=== PATIENT | female | born 1970 | race Two or more races ===

== ENCOUNTER 2017-06-12 23:29 | Emergency (ER) | payer SELFPAY ==
[~2017-06-12] VITALS: Ht 160 cm; Wt 73.9 kg
[~2017-06-12 23:29] MED LIST: ATOR10TA PO; CHOL2000 PO; HYDR-3240; LORA10TA62 PO; VALS80TA3 PO
[2017-06-12 23:31] VITALS: BP 121/78
[2017-06-12] MEDS ORDERED: HYDROcodone/APAP 5/325 TABLET ONE (23:50)
[2017-06-12] MEDS ORDERED: HYDROcodone/APAP 5/325 TABLET PO STA (23:56)
== END 2017-06-13 01:54 | disposition home or self-care (01) ==
LOC: ED 23:59
DX: S63.642A Sprain of metacarpophalangeal joint of left thumb, initial encounter (principal); S63.622A Sprain of interphalangeal joint of left thumb, initial encounter; I10 Essential (primary) hypertension; E78.00 Pure hypercholesterolemia, unspecified; W00.0XXA Fall on same level due to ice and snow, initial encounter; Y93.01 Activity, walking, marching and hiking; Y99.8 Other external cause status; Y92.89 Other specified places as the place of occurrence of the external cause
CPT/HCPCS: 99284

== ENCOUNTER 2017-11-29 00:06 | Emergency (ER) | payer SELFPAY ==
[~2017-11-29] VITALS: Ht 162.6 cm; Wt 70.0 kg
[2017-11-29 00:09] VITALS: BP 117/67
[2017-11-29] MEDS ORDERED: HYDROcodone/APAP 5/325 TABLET ONE (00:45)
[2017-11-29] MEDS ORDERED: HYDROcodone/APAP 5/325 TABLET PO ONE (01:00)
== END 2017-11-29 00:55 | disposition home or self-care (01) ==
LOC: ED 00:42
DX: K11.5 Sialolithiasis (principal); K11.21 Acute sialoadenitis; I10 Essential (primary) hypertension; E78.00 Pure hypercholesterolemia, unspecified
CPT/HCPCS: 99282

== ENCOUNTER 2019-11-24 00:46 | Emergency (ER) | payer SELFPAY ==
[~2019-11-24] VITALS: Ht 154.9 cm; Wt 65.5 kg
[2019-11-24 01:20] LABS: MICROSCOPIC NOT IND
[2019-11-24] MEDS ORDERED: ONDANSETRON 2MG/ML, 2ML ONE (01:25)
[2019-11-24] MEDS ORDERED: MORPHINE SULFATE 4 MG/ML, 1ML ONE ×2 (01:26→04:29)
[2019-11-24] MEDS ORDERED: ONDANSETRON 2MG/ML, 2ML IVPush ONE (01:30)
[2019-11-24] MEDS ORDERED: MORPHINE SULFATE 4 MG/ML, 1ML IVPush ONE ×2 (01:30→04:30)
[2019-11-24 01:38] LABS: BASOPHILS # (AUTO) 0.03 x10^3/uL (0-0.1); BASOPHILS % (AUTO) 0 % (0-1); EOSINOPHILS % (AUTO) 2 % (1-7); LYMPHOCYTES # (AUTO) 2.72 x10^3/uL (1-3.4); LYMPHOCYTES % (AUTO) 34 % (22-44); MD NO; MEAN CORPUSCULAR HEMOGLOBIN 29.6 pg (27.0-34.8); MEAN CORPUSCULAR HGB CONC 32.9 g/dL (32.4-35.8); MEAN CORPUSCULAR VOLUME 89.9 fL (80-100); MEAN PLATELET VOLUME 7.6 fL (7.4-10.4); MONOCYTES # (AUTO) 0.95 x10^3/uL (0.2-0.8); MONOCYTES % (AUTO) 12 % (2-9); NEUTROPHILS # (AUTO) 4.22 x10^3/uL (1.8-6.8); NEUTROPHILS % (AUTO) 52 % (42-75); PLATELET COUNT 263 x10^3/uL (130-400); RED BLOOD COUNT 3.73 x10^6/uL (3.82-5.3); RED CELL DISTRIBUTION WIDTH 13.5 % (9.6-15.2)
[2019-11-24 01:51] LABS: ANION GAP 4 mmol/L (5-15); CALCIUM 8.7 mg/dL (8.5-10.1); CHLORIDE 109 mmol/L (98-107); CREATININE 0.79 mg/dL (0.55-1.02)
[2019-11-24] MEDS ORDERED: KETOROLAC 30 MG/1 ML ONE (03:27)
[2019-11-24] MEDS ORDERED: KETOROLAC 30 MG/1 ML IVPush ONE (03:30)
--- NOTE | 2019-11-24 03:30 | NUR ---
PT MEDICATED PER MAR, UPDATED ON POC.
[2019-11-24 04:35] VITALS: BP 101/62
== END 2019-11-24 04:45 | disposition home or self-care (01) ==
LOC: ED 02:12
DX: N20.1 Calculus of ureter (principal); R30.0 Dysuria; M79.645 Pain in left finger(s); E78.00 Pure hypercholesterolemia, unspecified; I10 Essential (primary) hypertension; Z90.89 Acquired absence of other organs
CPT/HCPCS: 36415; 73130; 74176; 80048; 81003; 84703; 85025; 96374; 96375; 96376; 99285; J1885; J2270; J2405

== ENCOUNTER 2019-12-16 01:32 | Emergency (ER) | payer MEDICAID, OTHER ==
[~2019-12-16] VITALS: Ht 167.6 cm; Wt 67.0 kg
[2019-12-16 01:34] VITALS: BP 124/71
--- NOTE | 2019-12-16 01:44 | NUR ---
PT AMBULATORY TO ROOM.
[2019-12-16] MEDS ORDERED: HYDROcodone/APAP 5/325 TABLET ONE (01:58)
[2019-12-16] MEDS ORDERED: HYDROcodone/APAP 5/325 TABLET PO ONE (02:00)
--- NOTE | 2019-12-16 02:05 | NUR ---
THIS PT HAS A RX OF NORCO THAT SHE FINISHED TODAY FROM PRIOR VISIT FOR PAIN RELATED TO KIDNEY STONE. THIS RN TO BEDSIDE WITH ORDERED MED, PT REFUSING AT THIS TIME, WANTS IV MORPHINE INSTEAD. MED HELD UNTIL MD CAN BE ASKED FOR ORDER.
--- NOTE | 2019-12-16 02:10 | NUR ---
NO NEW ORDERS. PT EDUCATED ON MEDICATION ORDERS. PT STATES "WHATEVER," CONFIRMED WITH PT THAT SHE WANTED TO BE MEDICATED, PT MEDICATED TO MAR.
[2019-12-16 02:14] LABS: MICROSCOPIC NOT IND
--- NOTE | 2019-12-16 02:57 | NUR ---
PT HAD BEEN GIVEN WARM WASHCLOTH TO PLACE ON GLAND AT SAME TIME SHE WAS MEDICATED. UPON D/C, PT GIVEN INSTRUCTIONS AND EXTENSIVE EDUCATION ABOUT HOW TO TREAT [place]EN SALAVARY GLAND INCLUDING WARM COMPRESSES AND SOUR CANDY. PT STATES "THE PAIN MED HELPED ME A LITTLE BUT NOT A LOT, THEY DON'T UNDERSTAND HOW BAD THE PAIN IS. IT'S FINE I'M LEAVING AND I'M GOING SOMEWHERE ELSE FOR HELP BECAUSE THEY WERE SO MEAN TO ME HERE."
== END 2019-12-16 02:57 | disposition home or self-care (01) ==
LOC: ED 02:40
DX: K11.22 Acute recurrent sialoadenitis (principal); R10.31 Right lower quadrant pain; R30.0 Dysuria; N20.1 Calculus of ureter; I10 Essential (primary) hypertension; E78.00 Pure hypercholesterolemia, unspecified; Z90.89 Acquired absence of other organs
CPT/HCPCS: 81003; 99283

== ENCOUNTER 2020-08-07 08:50 | Emergency (ER) | payer SELFPAY ==
[~2020-08-07] VITALS: Ht 165.1 cm; Wt 65.0 kg
[~2020-08-07 08:50] MED LIST changes: +HYDR-2214; -HYDR-3240; +LORA-59 PO; -LORA10TA62 PO
--- NOTE | 2020-08-07 09:01 | NUR ---
PT AMBULATES WELL TO ED ROOM. PT TO BATHROOM FOR UA SPECIMEN. RN EDUCATED PT ON CLEAN CATCH PROCESS.
[2020-08-07] MEDS ORDERED: ONDANSETRON ODT 4 MG ONE (09:15)
[2020-08-07] MEDS ORDERED: OXYcodone/APAP 5/325MG TABLET ONE ×2 (09:15→12:31)
[2020-08-07 09:26] LABS: MICROSCOPIC AUTO
[2020-08-07] MEDS ORDERED: ONDANSETRON ODT 4 MG PO ONE (09:30)
[2020-08-07] MEDS ORDERED: OXYcodone/APAP 5/325MG TABLET PO ONE ×2 (09:30→12:30)
[2020-08-07 09:32] LABS: BASOPHILS % (AUTO) 1 % (0-1); EOSINOPHILS % (AUTO) 3 % (1-7); LYMPHOCYTES % (AUTO) 35 % (22-44); MEAN CORPUSCULAR HEMOGLOBIN 29.9 pg (27.0-34.8); MEAN CORPUSCULAR HGB CONC 33.7 g/dL (32.4-35.8); MEAN PLATELET VOLUME 7.1 fL (7.4-10.4); MONOCYTES % (AUTO) 9 % (2-9); NEUTROPHILS % (AUTO) 54 % (42-75); PLATELET COUNT 332 x10^3/uL (130-400); RED BLOOD COUNT 3.75 x10^6/uL (3.82-5.3); RED CELL DISTRIBUTION WIDTH 13.6 % (9.6-15.2)
[2020-08-07 09:46] LABS: ALANINE AMINOTRANSFERASE 76 U/L (12-78); ALBUMIN 3.4 g/dL (3.4-5.0); ANION GAP 4 mmol/L (5-15); CALCIUM 8.8 mg/dL (8.5-10.1); CHLORIDE 107 mmol/L (98-107); CREATININE 0.79 mg/dL (0.55-1.02)
[2020-08-07 09:47] LABS: MD NO
[2020-08-07 09:48] LABS: ALKALINE PHOSPHATASE 137 U/L (45-117); BILIRUBIN,TOTAL 0.2 mg/dL (0.2-1.0); TOTAL PROTEIN 9.8 g/dL (6.4-8.2)
--- NOTE | 2020-08-07 10:02 | NUR ---
pt reports decrease in abdominal pain. nad noted at this time.
--- NOTE | 2020-08-07 10:27 | NUR ---
PT CURRENTLY IN US
[2020-08-07] MEDS ORDERED: CEFTRIAXONE 1,000 MG ONE (10:41)
[2020-08-07] MEDS ORDERED: CEFTRIAXONE 1,000 MG IM ONE (11:00)
--- NOTE | 2020-08-07 11:03 | NUR ---
PT MEDICATED PER EMAR. PT DID NOT TOLERATE IM MEDICATION WELL. SIDE RAILS UP, CALL LIGHT IN REACH. HOB TO LEVEL OF COMFORT. READY FOR SECOND US.
--- NOTE | 2020-08-07 12:10 | NUR ---
PT ASLEEP UPON ENTRY TO ROOM.
[2020-08-07 12:25] VITALS: BP 109/57
[2020-08-07] MEDS ORDERED: IBUPROFEN 200 MG TABLET PO ONE (12:30)
[2020-08-07] MEDS ORDERED: IBUPROFEN 200 MG TABLET ONE (12:31)
== END 2020-08-07 12:52 | disposition home or self-care (01) ==
LOC: ED 11:05
DX: N30.01 Acute cystitis with hematuria (principal); R10.30 Lower abdominal pain, unspecified; R11.0 Nausea; I10 Essential (primary) hypertension; E78.00 Pure hypercholesterolemia, unspecified
CPT/HCPCS: 36415; 74018; 76770; 76830; 80053; 81001; 85025; 87086; 96372; 99285; J0696; Q0162

== ENCOUNTER 2020-09-02 08:58 | Emergency (ER) | payer SELFPAY ==
[~2020-09-02] VITALS: Ht 167.6 cm; Wt 64.7 kg
[2020-09-02] MEDS ORDERED: KETOROLAC 30 MG/1 ML ONE (09:26)
[2020-09-02] MEDS ORDERED: ONDANSETRON 2MG/ML, 2ML ONE (09:26)
[2020-09-02] MEDS ORDERED: MORPHINE SULFATE 4 MG/ML, 1ML ONE ×2 (09:26→10:34)
[2020-09-02] MEDS ORDERED: PROMETHAZINE 25 MG/ML, 1ML IM ONE (09:30)
[2020-09-02] MEDS ORDERED: ONDANSETRON 2MG/ML, 2ML IVPush ONE (09:30)
[2020-09-02] MEDS ORDERED: SODIUM CHLORIDE 0.9% 1,000ML IVBOLUS ONE (09:30)
[2020-09-02] MEDS: KETOROLAC 30 MG/1 ML IVPush ONE ×2 (09:30→09:34)
[2020-09-02] MEDS: MORPHINE SULFATE 4 MG/ML, 1ML IVPush PRN ×2 (09:35→10:36)
--- NOTE | 2020-09-02 09:43 | NUR ---
Pt to imaging.
--- NOTE | 2020-09-02 10:00 | NUR ---
Pt states pain has been increasing for the past week. Pt reports initial pain for a week 3 weeks ago, resolved and now back. Pt c/o nausea, no emisis while in ER. Connected to BP and O2 monitors. Denies need for more pain or nausea meds at this time.
[2020-09-02 10:23] LABS: MICROSCOPIC NOT IND
[2020-09-02 10:37] LABS: BASOPHILS % (AUTO) 0 % (0-1); EOSINOPHILS % (AUTO) 3 % (1-7); LYMPHOCYTES % (AUTO) 38 % (22-44); MEAN CORPUSCULAR HEMOGLOBIN 29.6 pg (27.0-34.8); MEAN CORPUSCULAR HGB CONC 33.5 g/dL (32.4-35.8); MEAN PLATELET VOLUME 7.9 fL (7.4-10.4); MONOCYTES % (AUTO) 11 % (2-9); NEUTROPHILS % (AUTO) 48 % (42-75); PLATELET COUNT 307 x10^3/uL (130-400); RED BLOOD COUNT 3.77 x10^6/uL (3.82-5.3); RED CELL DISTRIBUTION WIDTH 13.6 % (9.6-15.2)
[2020-09-02 10:49] LABS: ALBUMIN 3.5 g/dL (3.4-5.0); ANION GAP 8 mmol/L (5-15); CHLORIDE 110 mmol/L (98-107)
[2020-09-02 10:54] LABS: ALANINE AMINOTRANSFERASE 128 U/L (12-78); ALKALINE PHOSPHATASE 146 U/L (45-117); BILIRUBIN,TOTAL 0.2 mg/dL (0.2-1.0); CREATININE 0.76 mg/dL (0.55-1.02)
--- NOTE | 2020-09-02 11:07 | NUR ---
US at bedside.
[2020-09-02 11:41] VITALS: BP 98/65
--- NOTE | 2020-09-02 11:41 | NUR ---
MD Pepe back to bedside to update pt on POC.
[2020-09-02] MEDS ORDERED: HYDROcodone/APAP 5/325 TABLET ONE (11:50)
[2020-09-02] MEDS ORDERED: HYDROcodone/APAP 5/325 TABLET PO ONE (12:00)
== END 2020-09-02 12:07 | disposition home or self-care (01) ==
LOC: ED 11:54
DX: R10.11 Right upper quadrant pain (principal); R10.13 Epigastric pain; R11.2 Nausea with vomiting, unspecified; I10 Essential (primary) hypertension; E78.00 Pure hypercholesterolemia, unspecified
CPT/HCPCS: 36415; 74176; 76700; 80053; 81003; 83690; 85025; 96361; 96374; 96375; 96376; 99285; J2270; J2405; J7030

== ENCOUNTER 2020-10-09 20:11 | Emergency (ER) | payer SELFPAY ==
[~2020-10-09] VITALS: Ht 165.1 cm; Wt 64.6 kg
[2020-10-09] MEDS ORDERED: KETOROLAC 15 MG/1ML IVPush ONE (22:00)
[2020-10-09] MEDS ORDERED: ONDANSETRON 2MG/ML, 2ML IVPush ONE (22:00)
[2020-10-09] MEDS ORDERED: SODIUM CHLORIDE 0.9% 1,000ML IVBOLUS ONE (22:00)
[2020-10-09] MEDS ORDERED: ONDANSETRON 2MG/ML, 2ML ONE (22:18)
[2020-10-09] MEDS ORDERED: ACETAMINOPHEN 500 MG TABLET ONE (22:18)
[2020-10-09 22:21] LABS: BASOPHILS % (AUTO) 0 % (0-1); EOSINOPHILS % (AUTO) 0 % (1-7); LYMPHOCYTES % (AUTO) 13 % (22-44); MEAN CORPUSCULAR HEMOGLOBIN 29.9 pg (27.0-34.8); MEAN CORPUSCULAR HGB CONC 33.9 g/dL (32.4-35.8); MEAN PLATELET VOLUME 7.5 fL (7.4-10.4); MONOCYTES % (AUTO) 8 % (2-9); NEUTROPHILS % (AUTO) 79 % (42-75); PLATELET COUNT 230 x10^3/uL (130-400); RED BLOOD COUNT 3.87 x10^6/uL (3.82-5.3); RED CELL DISTRIBUTION WIDTH 14.3 % (9.6-15.2)
[2020-10-09] MEDS ORDERED: ACETAMINOPHEN 500 MG TABLET PO ONE (22:30)
[2020-10-09 22:33] LABS: ALANINE AMINOTRANSFERASE 108 U/L (12-78); ALBUMIN 3.3 g/dL (3.4-5.0); ANION GAP 5 mmol/L (5-15); CALCIUM 9.2 mg/dL (8.5-10.1); CHLORIDE 107 mmol/L (98-107); CREATININE 0.65 mg/dL (0.55-1.02)
[2020-10-09 22:37] LABS: ALKALINE PHOSPHATASE 134 U/L (45-117); BILIRUBIN,TOTAL 0.8 mg/dL (0.2-1.0); TOTAL PROTEIN 10.2 g/dL (6.4-8.2); TROPONIN I 0.023 ng/mL (0.000-0.045)
[2020-10-09 22:51] LABS: MICROSCOPIC NOT IND
[2020-10-09 23:26] LABS: AMPHETAMINE SCREEN, URINE Positive (Negative); BARBITURATE SCREEN, URINE Negative (Negative); BENZODIAZEPINE SCREEN, URINE Positive (Negative); CANNABINOID SCREEN, URINE Negative (Negative); COCAINE SCREEN, URINE Negative (Negative); METHADONE SCREEN, URINE Negative (Negative); OPIATE SCREEN, URINE Positive (Negative)
[2020-10-09] MEDS ORDERED: MORPHINE SULFATE 4 MG/ML, 1ML ONE (23:27)
[2020-10-09] MEDS ORDERED: CEFTRIAXONE 1,000 MG in DEXTROSE 5% 50 ML IVPB ONE (23:30)
[2020-10-09] MEDS ORDERED: MORPHINE SULFATE 4 MG/ML, 1ML IVPush ONE (23:30)
[2020-10-09 23:58] VITALS: BP 109/52
== END 2020-10-10 00:03 | disposition home or self-care (01) ==
LOC: ED 21:00
DX: J18.9 Pneumonia, unspecified organism (principal); Z20.822 Contact with and (suspected) exposure to COVID-19; R50.9 Fever, unspecified; F11.10 Opioid abuse, uncomplicated; F15.129 Other stimulant abuse with intoxication, unspecified; Z72.9 Problem related to lifestyle, unspecified; R42 Dizziness and giddiness; R00.0 Tachycardia, unspecified; I10 Essential (primary) hypertension; E78.00 Pure hypercholesterolemia, unspecified
CPT/HCPCS: 36415; 71045; 80053; 80307; 81003; 83605; 83690; 84145; 84484; 85025; 87040; 93005; 96361; 96365; 96375; 99285; J0696; J2270; J2405; J7030; U0003; U0005

== ENCOUNTER 2020-10-10 23:28 | Inpatient (IN) | payer OTHER ==
[~2020-10-10] VITALS: Ht 167.6 cm; Wt 70.6 kg
[2020-10-11] MEDS ORDERED: IBUPROFEN 600 MG TABLET PO ONE
[2020-10-11] MEDS ORDERED: SODIUM CHLORIDE 0.9% 1,000ML IVBOLUS ONE
[2020-10-11] MEDS ORDERED: IBUPROFEN 600 MG TABLET ONE (00:27)
[2020-10-11 00:41] LABS: BASOPHILS % (AUTO) 0 % (0-1); EOSINOPHILS % (AUTO) 1 % (1-7); LYMPHOCYTES % (AUTO) 22 % (22-44); MEAN CORPUSCULAR HEMOGLOBIN 29.9 pg (27.0-34.8); MEAN CORPUSCULAR HGB CONC 33.5 g/dL (32.4-35.8); MONOCYTES % (AUTO) 8 % (2-9); NEUTROPHILS % (AUTO) 69 % (42-75); PLATELET COUNT 201 x10^3/uL (130-400); RED BLOOD COUNT 3.58 x10^6/uL (3.82-5.3); RED CELL DISTRIBUTION WIDTH 14.2 % (9.6-15.2)
--- NOTE | 2020-10-11 00:44 | NUR ---
URINE SENT TO LAB AT THIS TIME
--- NOTE | 2020-10-11 00:48 | NUR ---
Pt asking for Morphine. MD aware.
[2020-10-11 00:58] LABS: ALANINE AMINOTRANSFERASE 71 U/L (12-78); ALBUMIN 2.5 g/dL (3.4-5.0); ANION GAP 7 mmol/L (5-15); CALCIUM 8.1 mg/dL (8.5-10.1); CHLORIDE 111 mmol/L (98-107)
[2020-10-11 01:00] LABS: ALKALINE PHOSPHATASE 127 U/L (45-117); BILIRUBIN,TOTAL 0.3 mg/dL (0.2-1.0)
[2020-10-11 01:04] LABS: MICROSCOPIC NOT IND
[2020-10-11] MEDS ORDERED: CEFTRIAXONE 1,000 MG in DEXTROSE 5% 50 ML IVPB ONE (02:00)
[2020-10-11] MEDS ORDERED: AZITHROMYCIN 500 MG in SODIUM CHLORIDE 0.9% 250 ML IV ONE (02:00)
[2020-10-11] MEDS ORDERED: MORPHINE SULFATE 4 MG/ML, 1ML ONE ×2 (02:03→02:42)
[2020-10-11] MEDS: MORPHINE SULFATE 4 MG/ML, 1ML IVPush PRN ×2 (02:08→02:44)
--- NOTE | 2020-10-11 02:34 | NUR ---
REPORT TO VERONICA LOVETT PT READY FOR TRANSFER
[2020-10-11] MEDS ORDERED: ENALAPRILAT 1.25 MG/ML, 2ML IVPush PRN (03:00)
[2020-10-11] MEDS ORDERED: METHOCARBAMOL 500 MG TABLET PO PRN (03:00)
[2020-10-11] MEDS ORDERED: ZOLPIDEM 5MG TABLET PO PRN (03:00)
[2020-10-11] MEDS ORDERED: GUAIFENESIN/DM 200-20MG, 10ML UDC PO PRN (03:00)
[2020-10-11] MEDS ORDERED: DOCUSATE 100 MG CAPSULE PO PRN (03:00)
[2020-10-11] MEDS ORDERED: ONDANSETRON 2MG/ML, 2ML IVPush PRN (03:00)
[2020-10-11] MEDS ORDERED: ACETAMINOPHEN 325 MG TABLET PO PRN (03:00)
[2020-10-11 03:19] VITALS: BP 93/59
[2020-10-11] MEDS: OXYcodone/APAP 5/325MG TABLET PO PRN ×4 (03:32→19:59)
[2020-10-11] MEDS: SODIUM CHLORIDE 0.9% 1,000 ML IV SCH ×2 (03:32→12:34)
[2020-10-11] MEDS: morphine SULFATE 10 MG/ML, 1ML IVPush PRN ×3 (06:26→18:17)
[2020-10-11 07:30] VITALS: BP 99/64
[2020-10-11] MEDS: ENOXAPARIN 40 MG/0.4 ML SQ SCH (08:29)
[2020-10-11 12:07] LABS: HCT (SEDRATE) 28.9 % (34.6-47.8)
[2020-10-11 13:33] VITALS: BP 94/60
[2020-10-11 18:57] VITALS: BP 101/64
[2020-10-12 00:02] VITALS: BP 104/67
[2020-10-12] MEDS: morphine SULFATE 10 MG/ML, 1ML IVPush PRN ×2 (00:08→06:51)
[2020-10-12] MEDS: SODIUM CHLORIDE 0.9% 1,000 ML IV SCH ×2 (00:10→12:47)
[2020-10-12] MEDS: CEFTRIAXONE 2 GM in DEXTROSE 5% 50 ML IVPB SCH (01:42)
[2020-10-12] MEDS: AZITHROMYCIN 500 MG in SODIUM CHLORIDE 0.9% 250 ML IV SCH (02:15)
[2020-10-12] MEDS: OXYcodone/APAP 5/325MG TABLET PO PRN ×4 (02:17→20:23)
[2020-10-12 05:19] LABS: BASOPHILS % (AUTO) 0 % (0-1); EOSINOPHILS % (AUTO) 1 % (1-7); LYMPHOCYTES % (AUTO) 17 % (22-44); MEAN CORPUSCULAR HEMOGLOBIN 30.1 pg (27.0-34.8); MEAN CORPUSCULAR HGB CONC 34.1 g/dL (32.4-35.8); MEAN PLATELET VOLUME 7.9 fL (7.4-10.4); MONOCYTES % (AUTO) 7 % (2-9); NEUTROPHILS % (AUTO) 75 % (42-75); PLATELET COUNT 230 x10^3/uL (130-400); RED BLOOD COUNT 3.23 x10^6/uL (3.82-5.3); RED CELL DISTRIBUTION WIDTH 14.4 % (9.6-15.2)
[2020-10-12 05:31] LABS: CHLORIDE 110 mmol/L (98-107)
[2020-10-12 05:35] LABS: ANION GAP 9 mmol/L (5-15); CALCIUM 7.8 mg/dL (8.5-10.1); CREATININE 0.55 mg/dL (0.55-1.02)
[2020-10-12 08:24] VITALS: BP 111/64
[2020-10-12] MEDS: ENOXAPARIN 40 MG/0.4 ML SQ SCH (08:33)
[2020-10-12 08:59] VITALS: BP 114/66
[2020-10-12 10:22] LABS: TROPONIN I 0.283 ng/mL (0.000-0.045)
[2020-10-12] MEDS ORDERED: OMNIPAQUE 350 MG/ML, 75ML BOTTLE ONE (11:02)
[2020-10-12 13:00] VITALS: BP 96/65
[2020-10-12] MEDS ORDERED: KETOROLAC 30 MG/1 ML ONE (13:12)
[2020-10-12] MEDS ORDERED: KETOROLAC 30 MG/1 ML IM PRN ×2 (13:30→19:30)
[2020-10-12] MEDS ORDERED: KETOROLAC 30 MG/1 ML IM ONE (13:30)
[2020-10-12] MEDS ORDERED: IBUPROFEN 200 MG TABLET PO PRN (15:30)
[2020-10-12] MEDS: IBUPROFEN 200 MG TABLET PO SCH ×2 (17:02→20:22)
[2020-10-12 20:59] VITALS: BP 95/63
[2020-10-13] MEDS: SODIUM CHLORIDE 0.9% 1,000 ML IV SCH ×2 (00:59→09:23)
[2020-10-13] MEDS: CEFTRIAXONE 2 GM in DEXTROSE 5% 50 ML IVPB SCH (01:31)
[2020-10-13 01:34] VITALS: BP 96/66
[2020-10-13] MEDS: AZITHROMYCIN 500 MG in SODIUM CHLORIDE 0.9% 250 ML IV SCH (02:15)
[2020-10-13] MEDS: OXYcodone/APAP 5/325MG TABLET PO PRN ×2 (05:06→09:08)
[2020-10-13 05:15] LABS: BASOPHILS % (AUTO) 0 % (0-1); EOSINOPHILS % (AUTO) 3 % (1-7); LYMPHOCYTES % (AUTO) 24 % (22-44); MEAN CORPUSCULAR HGB CONC 33.5 g/dL (32.4-35.8); MEAN PLATELET VOLUME 7.7 fL (7.4-10.4); MONOCYTES % (AUTO) 9 % (2-9); NEUTROPHILS % (AUTO) 63 % (42-75); PLATELET COUNT 263 x10^3/uL (130-400); RED BLOOD COUNT 3.35 x10^6/uL (3.82-5.3); RED CELL DISTRIBUTION WIDTH 14.1 % (9.6-15.2)
[2020-10-13 05:25] LABS: CHLORIDE 114 mmol/L (98-107)
[2020-10-13 05:33] LABS: ALANINE AMINOTRANSFERASE 36 U/L (12-78); ALKALINE PHOSPHATASE 89 U/L (45-117); ANION GAP 3 mmol/L (5-15); BILIRUBIN,TOTAL 0.3 mg/dL (0.2-1.0); CALCIUM 7.7 mg/dL (8.5-10.1); CREATININE 0.48 mg/dL (0.55-1.02); TOTAL PROTEIN 7.6 g/dL (6.4-8.2)
[2020-10-13 07:48] VITALS: BP 106/68
[2020-10-13] MEDS: IBUPROFEN 200 MG TABLET PO SCH (09:08)
[2020-10-13] MEDS: ENOXAPARIN 40 MG/0.4 ML SQ SCH (09:14)
[2020-10-13] MEDS ORDERED: IBUP-1902 PO (14:26)
[2020-10-13] MEDS ORDERED: CEFD300C37 PO (14:26)
[2020-10-13] MEDS ORDERED: AZIT250T89 PO (14:26)
[2020-10-13 14:56] VITALS: BP 101/64
[2020-10-13] MEDS ORDERED: CEFDINIR 300 MG CAPSULE PO SCH (21:00)
[2020-10-14] MEDS ORDERED: AZITHROMYCIN 250 MG TABLET PO SCH (09:00)
== END 2020-10-13 15:53 | disposition home or self-care (01) | DRG 871 ==
LOC: ED 10-11 00:15 → EDIP 10-11 02:20 → 3N 10-11 03:07 → 5SO 10-12 12:47
PROVIDERS: ADMIT Internal Medicine; ATTEND Family Medicine
DX: A41.9 Sepsis, unspecified organism (principal); J18.9 Pneumonia, unspecified organism; J96.01 Acute respiratory failure with hypoxia; D64.9 Anemia, unspecified; E78.00 Pure hypercholesterolemia, unspecified; E78.5 Hyperlipidemia, unspecified; E87.8 Other disorders of electrolyte and fluid balance, not elsewhere classified; I10 Essential (primary) hypertension; R65.20 Severe sepsis without septic shock; Z82.49 Family history of ischemic heart disease and other diseases of the circulatory system; Z83.3 Family history of diabetes mellitus
CPT/HCPCS: 36415; 71045; 71275; 80048; 80053; 81003; 83605; 83690; 83735; 84145; 84484; 85025; 85379; 85651; 87040; 93005; 93306; 96361; 96374; G0378; J0456; J0696; J1650; Q9967; J2270; J7030; J7050